=== PATIENT | male | born 2000 | race Caucasian/White ===

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

== ENCOUNTER → 2022-07-13 18:55 | Outpatient (BNVA) | payer SELFPAY | PROVIDERS: Visit Provider Registered Nurse Neonatal Intensive Care | DX: J02.9 Acute pharyngitis, unspecified (principal) | CPT/HCPCS: 87070; 87880 ==

== ENCOUNTER 2022-10-29 19:19 | Emergency (ER) | payer MEDICAID, SELFPAY ==
[2022-10-29 19:25] VITALS: BP 143/87; PULSE 115; RESP 18; TEMP 36.8; O2SAT 96
--- NOTE | 2022-10-29 19:31 | W.ED.SOB ---
HPI - SOB/Dyspnea General: Chief Complaint: Shortness of Breath/Dyspnea Stated Complaint: difficulty breathing, asthma Time Seen by Provider: 10/29/22 19:30 History of Present Illness: HPI Narrative: 22-year-old male patient comes in today for complaints of exacerbation of asthma. Patient has been using his albuterol inhaler more frequently. Patient ran out of his albuterol today. Patient has been using some nebulizer treatments at home but was down to his last dose this evening. Patient was able to speak full sentences. Patient appears nontoxic. Patient appears in no pain. Patient and mother both reported no fever but increasing allergy symptoms. Associated symptoms: Deny chest pain, extremity pain, fever(s), nausea or vomiting Review of Systems Const: Denies: fever(s) Card: Denies: chest pain Resp: Reports: dyspnea GI: Denies: nausea or vomiting Musc: Denies: back pain or extremity pain Skin/Breast: Denies: rash PFSH ED PFSH: Social History Smoking and tobacco status: current every day smoker (vape) cigarettes and smokeless tobacco Smokeless tobacco user: chewing tobacco Physical Exam Const: COMMON NORMALS: alert HENMT: COMMON NORMALS: normocephalic HEAD & SCALP: normocephalic MOUTH: Normal oral and palatal mucosa present Eye: GENERAL EYE: other (Mild erythema with clear tears) Neck/C-Spine: COMMON NORMALS: no meningeal signs Resp: COMMON NORMALS: normal respiratory effort AUSCULTATION: wheezes and diminished lung sounds Cardio: COMMON NORMALS: regular rhythm RATE: tachycardic RHYTHM: regular rhythm Extremity: COMMON NORMALS: no pedal edema Neuro: SENSORIUM/ORIENTATION: Yes alert MENINGEAL SIGNS: Yes no meningeal signs Skin: COMMON NORMALS: turgor normal GENERAL SKIN EXAM: turgor normal Course Vital Signs: Vital signs: Vital Signs Temperature 98.3 F 10/29/22 19:25 Pulse Rate 89 10/29/22 21:02 Respiratory Rate 14 10/29/22 21:02 Blood Pressure 143/87 10/29/22 19:25 Pulse Oximetry 97 10/29/22 21:02 Oxygen Delivery Me thod 10/29/22 20:34 MDM - SOB/Dyspnea Medical Decision Making Patient came in today for persistent worsening asthma symptoms. Patient ran out of his inhaler at home. Patient reports worsening symptoms over the last 2 to 3 days. On exam patient has some decreased breath sounds with wheezing throughout. Vital signs were normal except for some elevation in pulse at 115, and mild elevation of blood pressure at 143 systolic. Differential diagnosis includes but not limited to respiratory failure, status asthmaticus, exacerbation of asthma. No signs of severe illness is noted at this time. Patient was treated in the ER with a nebulizer treatment and albuterol inhaler. Patient was also given 50 mg of Benadryl for the nasal drainage and eye drainage. Patient was also given 10 mg of dexamethasone IM. Patient has improvement in aeration of lungs and overall felt better after treatment. Patient be continued on prednisone 20 mg twice a day for the next 3 days, patient was started on Advair discus, and was given refills for his albuterol and nebulizer treatments at home. Patient reported understanding of care plan along with his mother with recommendations for follow-up and need for return. Lab Data Labs/Radiology: Radiology Impressions Chest X-Ray 10/29/22 19:34 IMPRESSION: No acute findings. Discharge Plan Discharge Patient Disposition: Home Clinical Impression: Asthma with exacerbation Qualifiers: Asthma severity: moderate Asthma persistence: persistent Qualified Code(s): J45.41 - Moderate persistent asthma with (acute) exacerbation Condition: Stable Prescriptions: New ipratropium-albuterol 0.5 mg-3 mg(2.5 mg base)/3 mL solution for nebulization 3 ml inhalation Q6H PRN (Reason: shortness of breath or wheezing) Qty: 90 0RF albuterol sulfate 90 mcg/actuation HFA aerosol inhaler 2 inh inhalation Q4H PRN (Reason: shortness of breath or wheezing) Qty: 16 0RF prednisone 20 mg tablet 20 mg PO BID 3 Days Qty: 6 0RF Advair Diskus 250-50 mcg/dose blister with device 1 inh inhalation BID Qty: 60 0RF Discharge Orders: Discharge ED (Routine); Ordered 10/29/22 Ordered By: James Severino Referrals: [facility] [Other] Discharge Diet: Usual diet Discharge Activity: Increase activity as tolerated Patient Instructions: Asthma (ED) Activity Restrictions/Additional Instructions: Drink plenty of water. Take steroid prednisone 20 mg twice a day for the next 3 days. Use albuterol inhaler, and ipratropium?albuterol nebulizer treatments as needed. Use fluticasone?salmeterol Diskus inhaler twice a day routinely. Do good oral care after use of fluticasone containing inhaler. Follow-up with primary care in 1 week for recheck. Return to ED for new concerns. Coding Level of Care Code ED Outbound Sales Representative for Patricia Ortiz
--- NOTE | 2022-10-29 19:34 | XRR_ITS ---
PROCEDURE INFORMATION: Exam: XR Chest Exam date and time: 10/29/2022 7:39 PM Age: 22 years old Clinical indication: Cough and shortness of breath; Additional info: Dyspnea, asthma TECHNIQUE: Imaging protocol: Radiologic exam of the chest. Views: 1 view. COMPARISON: CR XR chest 1V [id number] 07/10/2018 11:37 PM FINDINGS: Lungs: Unremarkable. No consolidation. Pleural spaces: Unremarkable. No pleural effusion. No pneumothorax. Heart/Mediastinum: Unremarkable. No cardiomegaly. Bones/joints: Unremarkable. XR/XR chest 1V portable [id number] IMPRESSION: No acute findings.
[2022-10-29] MEDS: dexamethasone 10 mg/mL INJ IM (19:51)
[2022-10-29] MEDS: diphenhydrAMINE 50 mg/mL SDV 1mL IM (19:51)
[2022-10-29] MEDS: albuterol 8 gm MDI 2 PUFF INHALATION (20:28)
[2022-10-29] MEDS: ipratropium-albuterol 3 mL Neb INHALATION (20:28)
[2022-10-29 20:34] VITALS: PULSE 74; RESP 18; O2SAT 95
[2022-10-29 21:02] VITALS: PULSE 89; RESP 14; O2SAT 97
--- NOTE | 2022-11-04 14:26 | DCPLANNER ---
Addendum entered by Heide Ruiz 11/04/22 14:27: human services case manager called patient due to no primary care physician - no answer at this time. Original Note: 11.03.22 - TCM called patient due to no primary care physician - no answer at this time
== END 2022-10-29 21:02 | disposition home or self-care (01) ==
PROVIDERS: Emergency Provider Nurse Practitioner Family
DX: J45.41 Moderate persistent asthma with (acute) exacerbation (principal); F17.220 Nicotine dependence, chewing tobacco, uncomplicated; F17.290 Nicotine dependence, other tobacco product, uncomplicated
CPT/HCPCS: 71045; 94640; 96372; 99284; J1100; J1200; J3535